=== PATIENT | female | born 1995 | race Caucasian/White ===

== ENCOUNTER 2016-12-26 08:15 | Emergency (ER) | payer OTHER ==
[2016-12-26 08:45] LABS: BILIRUBIN NEGATIVE (NEGATIVE); BLOOD 1+ Ery/uL (NEGATIVE); CLARITY CLEAR (CLEAR); COLOR YELLOW (YELLOW); GLUCOSE (U) NORMAL (NORMAL); KETONE (U) NEGATIVE (NEGATIVE); LEUKOCYTES NEGATIVE Leu/uL (NEGATIVE); NITRITE NEGATIVE (NEGATIVE); PROTEIN NEGATIVE (NEGATIVE); SPECIFIC GRAVITY 1.015 (1.001-1.030); UROBILINOGEN 0.2 mg/dL (0.2-1.0)
[2016-12-26 09:06] LABS: BASOPHIL 0.3 % (0-2); EOSINOPHIL 2.2 % (0-5); HGB 12.2 g/dl (12.5-16.0); LYMPHOCYTE 20.2 % (15-48); MCH 25.4 pg (25.0-31.0); MCHC 32.1 g/dL (32.0-36.0); MONOCYTE 10.2 % (0-12); MPV 11.5 fL (6.0-9.5); NEUTROPHIL 67.1 % (41-80); PLT 192 K/uL (150-400); RBC 4.81 M/uL (4.20-5.40); RDW 14.7 % (11.5-14.0); WBC 6.9 K/uL (4.0-10.5)
[2016-12-26 09:33] LABS: ALBUMIN 4.3 g/dL (3.5-5.0); BILIRUBIN - TOTAL 0.2 mg/dL (0.1-1.0); CREATININE 0.6 mg/dL (0.5-1.0); GLOBULIN (CALCULATION) 2.7 g/dL (2.2-4.2); POTASSIUM 4.1 mmol/L (3.5-5.1)
== END 2016-12-26 14:27 | disposition home or self-care (01) ==
LOC: FER 08:15
PROVIDERS: Internal Medicine
DX: N83.201 Unspecified ovarian cyst, right side (principal); K59.00 Constipation, unspecified; F32.9 Major depressive disorder, single episode, unspecified; Z87.898 Personal history of other specified conditions; Z79.899 Other long term (current) drug therapy; Z98.890 Other specified postprocedural states
CPT/HCPCS: 36415; 80053; 81003; 83690; 85025; J1170; J2405

== ENCOUNTER 2016-12-30 03:01 | Emergency (ER) | payer OTHER ==
[2016-12-30 03:39] LABS: BILIRUBIN NEGATIVE (NEGATIVE); BLOOD NEGATIVE Ery/uL (NEGATIVE); CLARITY CLEAR (CLEAR); COLOR YELLOW (YELLOW); GLUCOSE (U) NORMAL (NORMAL); KETONE (U) TRACE mg/dL (NEGATIVE); LEUKOCYTES NEGATIVE Leu/uL (NEGATIVE); NITRITE NEGATIVE (NEGATIVE); PROTEIN NEGATIVE (NEGATIVE); SPECIFIC GRAVITY 1.025 (1.001-1.030); UROBILINOGEN 0.2 mg/dL (0.2-1.0); pH 5.5 (5.0-9.0)
[2016-12-30 04:30] LABS: BASOPHIL 0.5 % (0-2); EOSINOPHIL 2.3 % (0-5); HGB 12.1 g/dl (12.5-16.0); LYMPHOCYTE 22.5 % (15-48); MCH 25.6 pg (25.0-31.0); MCHC 32.7 g/dL (32.0-36.0); MCV 78.4 fL (78.0-100.0); MONOCYTE 9.3 % (0-12); MPV 11.2 fL (6.0-9.5); NEUTROPHIL 65.4 % (41-80); PLT 212 K/uL (150-400); RBC 4.72 M/uL (4.20-5.40); RDW 14.4 % (11.5-14.0); WBC 8.6 K/uL (4.0-10.5)
[2016-12-30 04:46] LABS: ALBUMIN 4.4 g/dL (3.5-5.0); BILIRUBIN - TOTAL 0.2 mg/dL (0.1-1.0); CREATININE 0.9 mg/dL (0.5-1.0); GLOBULIN (CALCULATION) 2.7 g/dL (2.2-4.2); POTASSIUM 3.6 mmol/L (3.5-5.1); TOTAL PROTEIN 7.1 g/dL (6.4-8.3)
== END 2016-12-30 05:18 | disposition home or self-care (01) ==
LOC: FER 03:01
PROVIDERS: Emergency Medicine
DX: N83.209 Unspecified ovarian cyst, unspecified side (principal); F17.210 Nicotine dependence, cigarettes, uncomplicated; Z90.49 Acquired absence of other specified parts of digestive tract; Z98.890 Other specified postprocedural states
CPT/HCPCS: 36415; 74022; 80053; 81003; 85025; J1885